=== PATIENT | female | born 1990 | race Caucasian/White ===

== ENCOUNTER 2023-01-23 08:42 | Day surgery (SDC) | payer BC ==
[2023-01-20 07:42] VITALS: BMI 46.5
[2023-01-23] MEDS ORDERED: EPINEPHrine 1 MG/ML AMP ONE (09:37)
[2023-01-23] MEDS ORDERED: Indocyanine Green 25 MG/10 ML VIAL ONE (09:37)
[2023-01-23] MEDS ORDERED: Bupivacaine 0.25% HCL 30 ML VIAL ONE (09:37)
[2023-01-23] MEDS ORDERED: fentaNYL PF 100 MCG/2 ML SYRINGE ONE (10:40)
[2023-01-23] MEDS ORDERED: CEFAZOLIN 2 GM VIAL ONE (10:50)
[2023-01-23] MEDS ORDERED: Sodium Chloride 0.9% 100 ML ONE (10:50)
[2023-01-23] MEDS ORDERED: Glycopyrrolate 0.2 MG/ML 5 ML SYRINGE ONE (11:07)
[2023-01-23] MEDS ORDERED: PROPOFOL 200 MG/20 ML VIAL ONE (11:07)
[2023-01-23] MEDS ORDERED: Albuterol HFA (OR) 200 PUFF INH ONE (11:07)
[2023-01-23] MEDS ORDERED: Dexamethasone 20 MG/5 ML VIAL ONE (11:07)
[2023-01-23] MEDS ORDERED: PHENYLEPHRINE-NS 100 MCG/ML 10 ML SYRINGE ONE (11:07)
[2023-01-23] MEDS ORDERED: Ondansetron PF 4 MG/2 ML Vial ONE (11:07)
[2023-01-23] MEDS ORDERED: Lidocaine 1% PF 5 ML VIAL ONE (11:07)
[2023-01-23] MEDS ORDERED: Ketorolac Tromethamine 30 MG/ML VIAL ONE (11:07)
[2023-01-23] MEDS ORDERED: NEOSTIGMINE 3 MG/3 ML SYR 3 MG/3 ML SYRINGE ONE (11:07)
[2023-01-23] MEDS ORDERED: Rocuronium Bromide 10 MG/ML (10ML VIAL) ONE (11:07)
[2023-01-23] MEDS ORDERED: Fentanyl 250 MCG/5 ML VIAL ONE (12:31)
[2023-01-23] MEDS ORDERED: HYDROcodone/Acetaminophen 5/325 mg Tablet ONE (13:52)
== END 2023-01-23 14:43 | disposition home or self-care (01) ==
LOC: SDC 08:42
PROVIDERS: ATTEND Surgery
PROC: 0FT44ZZ Resection of Gallbladder, Percutaneous Endoscopic Approach (ICD-10-PCS; principal; 2023-01-23)
DX: K80.10 Calculus of gallbladder with chronic cholecystitis without obstruction (principal); Z87.19 Personal history of other diseases of the digestive system; Z79.899 Other long term (current) drug therapy
CPT/HCPCS: 88304; J0171; J1100; J1885; J2405; J2704; J3010; J3490; S0020

== ENCOUNTER 2024-01-16 06:32 | Day surgery (SDC) | payer BC ==
[2024-01-15 09:18] VITALS: BMI 44.4
[2024-01-16] MEDS ORDERED: PROPOFOL 20 ML ONE ×2 (08:27→08:28)
[2024-01-16] MEDS ORDERED: Lidocaine 2% PF 5 ML VIAL ONE (08:27)
[2024-01-16] MEDS ORDERED: SUCCINYLCHOLINE/SOD CL,ISO/PF 200 MG/10 ML SYRINGE FS ONE (08:50)
[2024-01-16] MEDS ORDERED: Ondansetron PF 4 MG/2 ML Vial ONE (09:01)
[2024-01-16] MEDS ORDERED: fentaNYL 50 mcg/mL 1 mL Vial ONE (09:50)
== END 2024-01-16 11:55 | disposition home or self-care (01) ==
LOC: SDC 06:32
PROVIDERS: ATTEND Internal Medicine
PROC: 0D758ZZ Dilation of Esophagus, Via Natural or Artificial Opening Endoscopic (ICD-10-PCS; principal; 2024-01-16)
DX: K21.9 Gastro-esophageal reflux disease without esophagitis (principal); R13.10 Dysphagia, unspecified; D64.9 Anemia, unspecified; Z98.51 Tubal ligation status; Z91.018 Allergy to other foods
CPT/HCPCS: J2001; J2405; J2704; J3010